=== PATIENT | female | born 1990 | race Caucasian/White ===

== ENCOUNTER 2017-02-22 17:24 | Inpatient (IN) | payer BC ==
[~2017-02-22] VITALS: Ht 157.5 cm; Wt 62.7 kg
[2017-02-22] VITALS (16 sets, daily range): BP systolic 109–138; BP diastolic 71–80
[~2017-02-22 17:24] MED LIST: ORTHO TRI-CY1 TABLE1 PO
[2017-02-22] MEDS ORDERED: PRENATAL TABLE1 EAC3 PO (18:39)
[2017-02-22 19:48] LABS: EOSINOPHIL (%) 0 % (0-5); HEMATOCRIT 40.8 % (36.0-46.0); IMMATURE GRANULOCYTE (%) 0.5 % (0.0-0.7); IMMATURE GRANULOCYTE COUNT 0.1 K/uL; INSTRUMENT ABS NEUTROPHIL CT 16.4 K/uL; MCH 32.1 PG (29.0-34.0); MCV 91.5 FL (83-99); MEAN PLAT.VOLUME 12.9 uM^3 (9.5-12.4); MONOCYTE (%) 5.9 % (3-12); MONOCYTE COUNT 1.1 K/uL (0-0.8); NEUTROPHIL (%) 87.8 % (45-76); NEUTROPHIL COUNT 16.4 K/uL (1.8-6.4); PLATELET COUNT 117 K/uL (156-360); RBC DIS.WIDTH-CV 12.5 % (11.8-14.6); RBC DIS.WIDTH-SD 41.4 % (39-53); RED BLOOD COUNT 4.46 M/uL (3.80-5.20); WHITE BLOOD COUNT 18.7 K/uL (4.1-10.2)
[2017-02-23] VITALS (12 sets, daily range): BP systolic 99–118; BP diastolic 55–77
[2017-02-23] MEDS ORDERED: IBUPROFEN800 MG PO (01:00)
[2017-02-24 07:57] VITALS: BP 114/72
== END 2017-02-24 11:45 | disposition home health service (06) | DRG 775 ==
LOC: LDRP-OP 17:24 → 2WEST 17:27
PROVIDERS: Nurse Practitioner
PROC: 3E0S3BZ Introduction of Anesthetic Agent into Epidural Space, Percutaneous Approach (ICD-10-PCS; 2017-02-22)
PROC: 10E0XZZ Delivery of Products of Conception, External Approach (ICD-10-PCS; principal; 2017-02-23)
DX: O12.04 Gestational edema, complicating childbirth (principal); Z37.0 Single live birth; Z3A.39 39 weeks gestation of pregnancy; O69.81X1 Labor and delivery complicated by cord around neck, without compression, fetus 1; O99.344 Other mental disorders complicating childbirth; F90.9 Attention-deficit hyperactivity disorder, unspecified type
CPT/HCPCS: 85025; C1755; G0378; J3010; J7120